=== PATIENT | male | born 1970 | race Caucasian/White ===

== ENCOUNTER 2016-04-14 06:41 | Day surgery (SDC) | payer OTHER ==
[~2016-04-14 06:41] MED LIST: Buffered Lidocaine 1% SYR 3ML* 3 ML/SYR SYRINGE INTRADERM ONE
[2016-04-14] MEDS ORDERED: Bupivacaine 0.25% SDV* 30 ML ONE (07:20)
[2016-04-14] MEDS ORDERED: Lidocaine 0.5%* 50 ML SDV ONE (07:39)
[2016-04-14] MEDS ORDERED: fentaNYL* 50 MCG/ML 2 ML VIAL (100 MCG VIAL) ONE (07:40)
[2016-04-14] MEDS ORDERED: Midazolam* 1 MG/ML 5 ML VIAL (5 MG) ONE (07:41)
[2016-04-14] MEDS ORDERED: Ketorolac INJ* 30 MG/ML 1 ML VIAL IV PRN (08:18)
[2016-04-14] MEDS ORDERED: fentaNYL* 50 MCG/ML 2 ML VIAL (100 MCG VIAL) IV PRN (08:18)
[2016-04-14] MEDS ORDERED: Ketorolac INJ* 30 MG/ML 1 ML VIAL ONE (09:05)
[2016-04-14 09:30] VITALS: BP 139/87
--- NOTE | 2016-04-15 10:25 | OP ---
DATE OF OPERATION: 04/14/16 - [facility] DATE OF : 66 SURGEON: Morgan Meyer MD SEED PELLETER: MICHAEL Penaloza ANESTHESIOLOGIST: Dr. Weiss. ANESTHESIA: Nereyda block. PRE-OP DIAGNOSIS: Left dorsal radial wrist mass. POST-OP DIAGNOSIS: Left dorsal radial wrist mass. OPERATIVE PROCEDURE: Excision of deep left dorsal radial wrist mass. INDICATIONS: Mr. Meyers is a 45-year-old male. He has had this mass over the left dorsal radial wrist for about three years. It's slowly increased in size. It's not really painful except for an occasional sharp pain associated with movement. We had done an MRI which was indeterminate, but was not too hyperintense on T2. It was also dark on T1. We talked about risks and benefits. He elected to proceed with surgery. EBL: 5 mL. COMPLICATIONS: None. 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 DESCRIPTION OF PROCEDURE: Mr. Meyers was seen in the preoperative holding area and the correct site and side were marked. We came back to the operating room where a Nereyda block was performed. The arm was then prepped and draped in the usual fashion, and a formal time-out was performed. I went ahead and made a longitudinal incision over the mass. Dissection was carried down and full thickness flaps were raised directly off the mass. There was two lobes to the mass. In between the two lobes were three important anatomical structures - one was a large dorsal radial sensory nerve, the other two were the radial artery and the EPL tendon. I went ahead and continued excision of the mass via marginal excision through the reactive zone of the mass. The margins were freed up radially and ulnarly. There was a large dorsal carpal branch of the radial artery that I ligated with some 4-0 silk suture. After I did this, I was able to have the artery mobilized enough that I could retract that plus the both the nerve and the tendon all off the mass. Once I had the critical anatomical structures retracted off the mass, I was able to then proceed down and complete the marginal excision. This ultimately was coming off the dorsal radial aspect of the radiocarpal joint. I went ahead and completed the full excision of the mass. I then irrigated the wound. I used a Bovie to obtain full hemostasis. I again irrigated the wound and then closed it with 4-0 nylon suture. No local anesthetic was infiltrated. The wounds were dressed with Xeroform, 4x4's, sterile Webril, and an Alban wrap. He was then taken to the recovery room in stable condition. [id number]/[facility] #: [id number] [facility]ITALAnthony
== END 2016-04-14 09:30 | disposition home or self-care (01) ==
LOC: OREAST 06:41
PROVIDERS: ATTEND Orthopaedic Surgery Hand Surgery
DX: M65.832 Other synovitis and tenosynovitis, left forearm (principal)
CPT/HCPCS: 88305; J1885; J2250; J3010